=== PATIENT | female | born 1950 | race Caucasian/White ===

== ENCOUNTER → 2018-11-24 09:42 | Outpatient (CLI) | payer MEDICARE, OTHER, SELFPAY ==
--- NOTE | 2018-11-24 | DI.MG.S_ITS ---
BILATERAL DIGITAL SCREENING MAMMOGRAM 3D/2D WITH CAD: 11/24/2018 CLINICAL: Routine screening. Comparison is made to exams dated: 10/22/2016 mammogram, 11/24/2014 mammogram, and 11/18/2012 mammogram - [facility]. The tissue of both breasts is heterogeneously dense. This may lower the sensitivity of mammography. Current study was also evaluated with a Computer Aided Detection (CAD) system. No significant masses, calcifications, or other findings are seen in either breast. There has been no significant interval change. IMPRESSION: NEGATIVE There is no mammographic evidence of malignancy. A 1 year screening mammogram is recommended. This exam was interpreted at Station ID: [id number]. NOTE: For mammograms, a report in lay terms will be sent to the patient. Approximately 15% of breast malignancies will not be visualized mammographically. In the management of a palpable breast mass, a negative mammogram must not discourage biopsy of a clinically suspicious lesion. Electronically Signed By: Ministerio velasquez/nile:11/25/2018 10:25:19 letter sent: Normal Exam ACR BI-RADS Category 1: Negative 3341F
== END ==
PROVIDERS: Visit Provider Internal Medicine
DX: Z12.31 Encounter for screening mammogram for malignant neoplasm of breast (principal)
CPT/HCPCS: 77063; 77067

== ENCOUNTER 2019-03-25 07:13 | Day surgery (SDC) | payer MEDICARE, OTHER, SELFPAY ==
[2019-03-25] VITALS (7 sets, daily range): BP systolic 91–108; BP diastolic 51–71; PULSE 57–75; RESP 10–16; TEMP 36.1–36.4; O2SAT 98–100; BMI 19.0
[2019-03-25] MEDS: SODIUM CHLORIDE 0.9% 1,000 ML 42 ML IV (07:28)
--- NOTE | 2019-03-25 08:32 | PM.HP.1 ---
History of Present Illness Date Patient Seen: 03/25/19 Time Patient Seen: 08:33 Chief complaint: [id number] Narrative: SCreening. Last colon 10 y Patient History Medical History (Updated 03/25/19 @ 08:33 by Joselo Garcia MD) Hypothyroid (Acute) Surgical History (Updated 12/24/17 @ 05:49 by Conversion Provider) Status post colonoscopy Family History (Updated 07/22/16 @ 00:00 by Conversion Provider) Grandfather Stroke Grandfather Prostate cancer Grandmother Cancer Social History household members: spouse Family & Social History Family History (Updated 07/22/16 @ 00:00 by Conversion Provider) Grandfather Stroke Grandfather Prostate cancer Grandmother Cancer Social History: household members spouse Meds Allergies Allergy/AdvReac Type Severity Reaction Status Date / Time Sulfa (Sulfonamide Allergy Unknown Verified 03/25/19 07:28 Antibiotics) Exam Vital Signs (past 8 hours): - 03/25/19 07:34 Temperature 97.6 F Pulse Rate 65 Respiratory Rate 16 Blood Pressure 108/68 Pulse Oximetry 100 Oxygen Delivery Method Room Air Narrative Exam Narrative: Oropharynx free of lesions Chest clear to auscultation percussion Cardiac exam reveals no S3 or murmur Assessment & Plan Assessment & Plan narrative: Need for screening colonoscopy. Risks, benefits, alternatives have been explained.
--- NOTE | 2019-03-25 08:34 | PM.OP.ENDO ---
Operative Date/Time/Diagnoses Date of procedure: 03/25/19 Time of procedure: 08:34 Pre-op diagnosis: See indication and findings Procedure & Clinicians Study performed: Colonoscopy Same procedure as scheduled: Yes Indications: Screening Surgeon: Joselo Garcia Procedure Notes Procedure in detail: After informed consent was obtained the patient was placed in left lateral decubitus position. The video colonoscope was introduced the rectum slowly advanced to the cecum. On slow withdrawal mucosa was carefully examined. Preparation was good. The scope was removed. The patient tolerated the procedure well. Blood loss none Complications none Sedation Total sedation time 26 minutes Versed 6 mg, fentanyl 100 mg IV titration Findings 1. Normal colonoscopy to cecum. Colon was quite tortuous however Patient should have follow-up colonoscopy in 10 years.
[2019-03-25] MEDS: fentaNYL 250 MCG/5 ML INJ IV (08:44)
[2019-03-25] MEDS: MIDAZOLAM 5 MG/5 ML VIAL IV (08:45)
== END 2019-03-25 09:55 | disposition home or self-care (01) ==
LOC: ENDO 07:15
PROVIDERS: PCP Internal Medicine; Visit Provider Internal Medicine Gastroenterology
PROC: 0DJD8ZZ Inspection of Lower Intestinal Tract, Via Natural or Artificial Opening Endoscopic (ICD-10-PCS; CPT 45378; principal; 2019-03-25 08:30)
DX: Z12.11 Encounter for screening for malignant neoplasm of colon (principal); E03.9 Hypothyroidism, unspecified
CPT/HCPCS: G0121; J2250; J3010

== ENCOUNTER → 2020-05-19 10:42 | Outpatient (CLI) | payer MEDICARE, OTHER, SELFPAY ==
--- NOTE | 2020-05-19 | DI.MG.S_ITS ---
BILATERAL DIGITAL SCREENING MAMMOGRAM 3D/2D WITH CAD: 05/19/2020 CLINICAL: Routine screening. Comparison is made to exams dated: 11/24/2018 mammogram - [facility], 10/22/2016 mammogram, and 11/24/2014 mammogram - [facility]. The tissue of both breasts is heterogeneously dense. This may lower the sensitivity of mammography. Current study was also evaluated with a Computer Aided Detection (CAD) system. No significant masses, calcifications, or other findings are seen in either breast. There has been no significant interval change. IMPRESSION: NEGATIVE There is no mammographic evidence of malignancy. A 1 year screening mammogram is recommended. This exam was interpreted at Station ID: [id number]. NOTE: For mammograms, a report in lay terms will be sent to the patient. Approximately 15% of breast malignancies will not be visualized mammographically. In the management of a palpable breast mass, a negative mammogram must not discourage biopsy of a clinically suspicious lesion. Electronically Signed By: Gilles mayo/nile:05/19/2020 11:00:12 letter sent: Normal Exam ACR BI-RADS Category 1: Negative 3341F
== END ==
PROVIDERS: PCP Internal Medicine; Referring Provider Internal Medicine; Visit Provider Internal Medicine
DX: Z12.31 Encounter for screening mammogram for malignant neoplasm of breast (principal)
CPT/HCPCS: 77063; 77067

== ENCOUNTER → 2020-09-02 10:37 | Outpatient (CLI) | payer MEDICARE, OTHER, SELFPAY ==
[2020-09-02] MEDS: COVID-19 VACC(MODERNA-1)/PF 100 MCG/0.5 ML VIAL IM (10:46)
== END ==
PROVIDERS: PCP Internal Medicine; Visit Provider Internal Medicine
DX: Z23 Encounter for immunization (principal)
CPT/HCPCS: 0011A; 91301

== ENCOUNTER → 2020-09-29 13:23 | Outpatient (CLI) | payer MEDICARE, OTHER, SELFPAY ==
[2020-09-29] MEDS: COVID-19 VACC #2, MRNA(MOD) 100 MCG/0.5 ML VIAL IM (13:30)
== END ==
PROVIDERS: PCP Internal Medicine; Visit Provider Internal Medicine
DX: Z23 Encounter for immunization (principal)
CPT/HCPCS: 0012A; 91301

== ENCOUNTER → 2021-10-12 15:21 | Outpatient (CLI) | payer MEDICARE, OTHER, SELFPAY ==
--- NOTE | 2021-10-12 | DI.MG.S_ITS ---
BILATERAL DIGITAL SCREENING MAMMOGRAM 3D/2D WITH CAD: 10/12/2021 CLINICAL: Routine screening. Comparison is made to exams dated: 05/19/2020 mammogram, 11/24/2018 mammogram - [facility], and 10/22/2016 mammogram - [facility]. The tissue of both breasts is heterogeneously dense. This may lower the sensitivity of mammography. Current study was also evaluated with a Computer Aided Detection (CAD) system. No significant masses, calcifications, or other findings are seen in either breast. There has been no significant interval change. IMPRESSION: NEGATIVE There is no mammographic evidence of malignancy. A 1 year screening mammogram is recommended. This exam was interpreted at Station ID: [id number]. NOTE: For mammograms, a report in lay terms will be sent to the patient. Approximately 15% of breast malignancies will not be visualized mammographically. In the management of a palpable breast mass, a negative mammogram must not discourage biopsy of a clinically suspicious lesion. Electronically Signed By: Chintan Herrera M.D., jr/nile:10/13/2021 09:37:12 letter sent: Normal Exam ACR BI-RADS Category 1: Negative 3341F
== END ==
PROVIDERS: PCP Registered Nurse; Referring Provider Registered Nurse; Visit Provider Internal Medicine
DX: Z12.31 Encounter for screening mammogram for malignant neoplasm of breast (principal)
CPT/HCPCS: 77063; 77067

== ENCOUNTER → 2021-12-21 10:30 | Outpatient (CLI) | payer MEDICARE, OTHER, SELFPAY | PROVIDERS: PCP Registered Nurse; Referring Provider Registered Nurse; Visit Provider Registered Nurse | DX: M81.0 Age-related osteoporosis without current pathological fracture (principal); Z78.0 Asymptomatic menopausal state | CPT/HCPCS: 77080 ==

== ENCOUNTER → 2022-10-25 07:28 | Outpatient (CLI) | payer MEDICARE, OTHER, SELFPAY ==
--- NOTE | 2022-10-25 | DI.MG.S_ITS ---
BILATERAL DIGITAL SCREENING MAMMOGRAM 3D/2D WITH CAD: 10/25/2022 CLINICAL: Routine screening. Comparison is made to exams dated: 10/12/2021 mammogram, 05/19/2020 mammogram, and 11/24/2018 mammogram - [facility]. Both breasts are heterogeneously dense, which may obscure small masses (category c / 51-75% glandular tissue). Current study was also evaluated with a Computer Aided Detection (CAD) system. There is a possible developing asymmetry in the right breast at 12 o'clock anterior depth. This is more prominent. There is architectural distortion associated with the asymmetry. No other significant masses, calcifications, or other findings are seen in either breast. IMPRESSION: INCOMPLETE: NEEDS ADDITIONAL IMAGING EVALUATION The possible developing asymmetry in the right breast is indeterminate. Additional views with possible ultrasound are recommended. Based on the Tyrer Cuzick model (a risk assessment model) the patient's lifetime risk is 8.2% and her 10 year risk is 5.3%. According to the ACR, ACS, and NCCN guidelines, an annual breast MRI exam along with mammogram is recommended if the patient's lifetime risk is 20% or greater. This exam was interpreted at Station ID: [id number]. NOTE: For mammograms, a report in lay terms will be sent to the patient. Approximately 15% of breast malignancies will not be visualized mammographically. In the management of a palpable breast mass, a negative mammogram must not discourage biopsy of a clinically suspicious lesion. Electronically Signed By: Chintan Herrera M.D., jr/nile:10/25/2022 14:47:20 letter sent: Additional Imaging Needed ACR BI-RADS Category 0: Incomplete 3340F
== END ==
PROVIDERS: PCP Registered Nurse; Referring Provider Registered Nurse; Visit Provider Registered Nurse
DX: Z12.31 Encounter for screening mammogram for malignant neoplasm of breast (principal)
CPT/HCPCS: 77063; 77067

== ENCOUNTER → 2022-11-02 11:57 | Outpatient (CLI) | payer MEDICARE, OTHER, SELFPAY ==
--- NOTE | 2022-11-02 | DI.US.S_ITS ---
ULTRASOUND OF RIGHT BREAST: 11/02/2022 CLINICAL: Add views right breast. Comparison is made to exams dated: 11/02/2022 mammogram, 10/25/2022 mammogram, 10/12/2021 mammogram, 05/19/2020 mammogram, 11/24/2018 mammogram - [facility], and 10/22/2016 mammogram - [facility]. Color flow and real-time ultrasound of the right breast were performed on the areas of interest. Ag scale images of the real-time examination were reviewed. There is a stable benign mass in the right breast at 1 o'clock posterior depth. IMPRESSION: PROBABLY BENIGN There is no sonographic abnormality seen in the right breast to correspond with the possible asymmetry and possible architectural distortion at 12 o'clock. A follow-up mammogram and a possible ultrasound in 6 months is recommended to demonstrate stability. This exam was interpreted at Station ID: [id number]. Electronically Signed By: Fe ray/:11/05/2022 11:49:32 Entry: - 11/05/2022 11:49:32 letter sent: Followup Recommended Ultrasound BI-RADS: 3 Probably benign
--- NOTE | 2022-11-02 | DI.MG.S_ITS ---
UNILATERAL RIGHT DIGITAL DIAGNOSTIC MAMMOGRAM 3D/2D WITH ADDITIONAL VIEWS: 11/02/2022 CLINICAL: Patient returns today to evaluate an asymmetry in the right breast. Comparison is made to exams dated: 10/25/2022 mammogram, 10/12/2021 mammogram, 05/19/2020 mammogram, and 11/24/2018 mammogram - [facility]. The right breast is heterogeneously dense, which may obscure small masses (category c / 51-75% glandular tissue). There is a focal asymmetry in the right breast at 12 o'clock middle depth. This is seen in additional views. There is possible architectural distortion associated with the focal asymmetry. No other significant masses or calcifications are seen in the breast. IMPRESSION: INCOMPLETE: NEEDS ADDITIONAL IMAGING EVALUATION The focal asymmetry in the right breast is indeterminate. A targeted ultrasound of the right breast is recommended and will be performed immediately following this exam. Based on the Tyrer Cuzick model (a risk assessment model) the patient's lifetime risk is 8.2% and her 10 year risk is 5.3%. According to the ACR, ACS, and NCCN guidelines, an annual breast MRI exam along with mammogram is recommended if the patient's lifetime risk is 20% or greater. This exam was interpreted at Station ID: [id number]. NOTE: For mammograms, a report in lay terms will be sent to the patient. Approximately 15% of breast malignancies will not be visualized mammographically. In the management of a palpable breast mass, a negative mammogram must not discourage biopsy of a clinically suspicious lesion. Electronically Signed By: Fe ray/:11/05/2022 11:47:13 Entry: - 11/05/2022 11:47:13 ACR BI-RADS Category 0: Incomplete 3340F
== END ==
PROVIDERS: PCP Registered Nurse; Referring Provider Registered Nurse; Visit Provider Registered Nurse
DX: D48.61 Neoplasm of uncertain behavior of right breast (principal); R92.8 Other abnormal and inconclusive findings on diagnostic imaging of breast
CPT/HCPCS: 76642; 77065; G0279

== ENCOUNTER 2023-04-25 14:00 | Outpatient (RCR) | payer MEDICARE, OTHER, SELFPAY ==
--- NOTE | 2023-01-03 19:19 | PT.OIE ---
Current Diagnoses Mixed incontinence (01/03/23) Past Medical History (Last Updated 03/25/19 @ 08:33 by Joselo Garcia MD) Hypothyroid Past Surgical History Status post colonoscopy Visit Care Team Role Provider Type ANA Rogel Attending Provider Non-Staff Family Provider Primary Care Provider Referring Provider Specialty: Naturopathy Address: [address] [place] [address], [id number] Email: Physical Therapy Initial Evaluation PT-OP-A Visit Information Start: 12/29/22 18:05 Freq: Status: Active Protocol: Document 01/03/23 08:01 LRN (Rec: 01/03/23 08:52 LRN [id number]) Out-Patient Physical Therapy Visit Information Visit Information Visit Type Initial Evaluation Visit Start Time 08:04 Visit Stop Time 08:48 Total Visit Minutes 44 Visit Number 1 Evaluation Information Evaluation Date 01/03/23 Precautions Precautions PMH: hypothryroid, osteopenia PT-OP-B Current Condition Start: 12/29/22 18:05 Freq: Status: Active Protocol: Document 01/03/23 08:01 LRN (Rec: 01/03/23 08:52 LRN [id number]) Current Condition History of Current Condition Onset Date 1 yr ago Current Complaints Small amount of leakage randomly. History of Current Condition Pt gets leakage not always when the bladder is full. Not a sense of fullness, it just leaks ~1-2x/month. Involuntary leakage, not related to activity or urge. States she travels alot, but works with diet to keep bowel movements regular. States she has been doing Kegels ex's for decades. PMH: 2-3 Bartholin cysts that had to be drained 4-5 yrs ago. UTI 3 weeks ago that was treated with prescription medication. She has UTI's ~2x/yr. Prior Treatments and Tests None Treatment Goals Patient/Caregiver Goals Pt goals: * to determine if there is a better way to perform Kegels and best HEP using Kegels, * educated in behavior changes she needs to make and * advice on if she should use Estradiol (used 5 yrs ago) because she has been told she has vaginal atrophy. Personal Factors Other Personal Factors That May Effect 2 vaginal births w/o Therapy/Recovery complications but did have stitches and episiotomy, UTI's ~2x/yr, Osteopenia. PT-OP-C Subjective Start: 12/29/22 18:05 Freq: Status: Active Protocol: Document 01/03/23 08:01 LRN (Rec: 01/03/23 08:52 LRN [id number]) Patient Questionnaires Pelvic Pain and Urgency/Frequency Patient Symptom Scale Pelvic Pain Score 7 PT-OP-I Pelvic Floor Start: 12/29/22 18:05 Freq: Status: Active Protocol: Document 01/03/23 08:01 LRN (Rec: 01/03/23 08:52 LRN [id number]) Pelvic Floor Assessment Urine Urinary Symptoms Prolapse Leakage Size Small Leaks Per Day 3x/month Voiding Frequency 5-6 Nocturia 0 Bowel Bowel Symptoms Constipation Other Bowel Symptoms Occasional constipation if she doesn't work on it. Hypothyroidism. Uses psyllium most days. Bowel Movement Frequency Daily, 1-2xday [place] Stool Chart Comments 2-4 Prolapse Urethrocele Grade 2 PT-OP-J Posture/Palpation/Skin Start: 12/29/22 18:05 Freq: Status: Active Protocol: Document 01/03/23 08:01 LRN (Rec: 01/03/23 08:52 LRN [id number]) Posture Evaluation Position Standing Head/C-Spine Posture Forward Head T-Spine Posture Increased Kyphosis L-Spine Posture Increased Lordosis Shoulder Posture (R) Elevated Scapula Posture (L) Rotated Down,(L) Depressed Arm Posture (L) Internally Rotated,(R) Internally Rotated Pelvis Posture (L) PSIS Posterior,(L) PSIS Inferior,(R) ASIS Inferior Hip Posture (R) Externally Rotated Comments Posture Comments L shoulder & breast low. L innominate in posterior rotation and posterior. PT-OP-K Range of Motion Start: 12/29/22 18:05 Freq: Status: Active Protocol: Document 01/03/23 08:01 LRN (Rec: 01/03/23 08:52 LRN [id number]) Lumbar Spine Range of Motion Lumbar Spine Active Degrees Testing Position Standing Flexion 110 Extension 15 Rotation Left 45 Rotation Right 40 Lateral Flexion Left 20 Lateral Flexion Right 15 Comments Holds Ext mobility due to spondylolisthesis. Loss of core control with hip Ext MMT. Hip Goniometric Range of Motion Hip Right Passive Testing Position Supine Internal Rotation 45 External Rotation 45 Left Passive Internal Rotation 40 External Rotation 45 PT-OP-M Strength Start: 12/29/22 18:05 Freq: Status: Active Protocol: Document 01/03/23 08:01 LRN (Rec: 01/03/23 08:52 LRN [id number]) Trunk Strength Trunk Manual Muscle Testing Flexion 5 Normal Extension 5 Normal Rotation Left 5 Normal Rotation Right 3 Fair Core Stabilization Lacks core stability with MMT of R hip ext. Hip Strength Hip Manual Muscle Testing Right Comments Strength is 5/5 in all ms groups. Left Comments Strength is 5/5 in all ms groups. PT-OP-Q Treatments Start: 12/29/22 18:05 Freq: Status: Active Protocol: Document 01/03/23 08:01 LRN (Rec: 01/03/23 08:52 LRN [id number]) Self-Care/Home Management Treatment Education Other Education Discussed results of evaluation, goals, and plan of care (POC). Pt agreeable to goals and POC. Pt educated in use of Bladder Diary and I/S in tracking for 1 week. Discussed use of 2 different diaries for tracking of bladder. Referred pt to referring physician for possible use of estrogen creme to improve PF health due to dryness of tissues and reported vaginal atrophy. PT-OP-T Assessment and Plan Start: 12/29/22 18:05 Freq: Status: Active Protocol: Document 01/03/23 08:01 LRN (Rec: 01/03/23 08:52 LRN [id number]) Physical Therapy Assessment Rehab Potential Rehabilitation Potential Good Evaluation Complexity Number of Personal Factors/Comorbidities 1-2 Number of Body Systems Impaired 4 or More Clinical Presentation at Evaluation Stable Impairments Impairments Posture,ROM,Soft Tissue Mobility,Strength Other Impairments Urinary leakage. Occasional constipation, Goals Four Impairment Poor body mechanics with transfer and possibly ADLs. Short Term Goal (STG) Pt will be able to transfers sup<>sit with best method to decrease core pressure. STG Duration 02/15/23 Vp Respiratory Goal (LTG) Pt will be able to make behaviour changes to coordinate PF contraction strengthening with transfers and ADLs. LTG Duration 04/05/23 Three Impairment Decreased Hip mobility Impairment PROM R hip IR is 45 deg's, ER is 45 deg's. PROM L hip IR is 40 deg's, ER is 45 deg's. Short Term Goal (STG) Pt will be educated in self care HEP of hip PROM ex's. STG Duration 02/15/23 Vp Respiratory Goal (LTG) Pt will demonstrate improved hip mobility for IR of L hip 5 deg's, and marko hip ER improved 5-10 deg's. LTG Duration 04/05/23 Two Impairment Increased PF tone. Short Term Goal (STG) Pt will be educated in proper management of her core pressure with ADLs and transfers. STG Duration 02/15/23 Vp Respiratory Goal (LTG) Pt will demonstrate per EMG biofeedback a decrease in PF tone. LTG Duration 04/05/23 One Impairment Pt lacks appropriate self care HEP Impairment Hip IR Short Term Goal (STG) Improve pt awareness of proper PF contraction for pt education of best way to perform a Kegel STG Duration 02/15/23 Vp Respiratory Goal (LTG) Pt will be able to manage symptoms of random urinary leakage with an independent HEP to include Hip ROM and strengthening as well as appropriate PF ex's. LTG Duration 04/05/23 Assessment Summary Assessment Pt is a 72 yo very fit female who presents in supine to have descent of her bladder but prolapse into the vaginal canal is not visible due to urethra descent. Descent of her bladder is probably due to poor core pressure management , occasional constipation, and weakening of her anterior PF muscles (PFMs). She has a visible urethrocele. She has a pelvic obliquity of L innominate posteriorly rotated and posteriorly shifted. She has tightness of her PFMs and hip IR's, but weakness of her anterior PFMs. On visual inspection of her perineum, an anterior PF contraction is not visible. The pt expects to have many interruptions this summer; therefore her rehabilitation is expected to take much longer to complete 8 visits, up to 3 months of time or longer. The pt will benefit from skilled physical therapy to improve hip mobility, improve awareness to improve PF strength, normalize PF ms tone, improve bowel management, and improve symmetry of hip mobility and strength, in order to achieve the above stated goals. Physical Therapy Plan Frequency and Duration Frequency of Treatment 1x/Week Plan of Care Start Date 01/03/23 Plan of Care End Date 04/05/23 Therapeutic Interventions Therapeutic Interventions Home Exercise Program,Joint Mobilizations,Manual Therapy, Neuromuscular Re-education, Patient/Caregiver Education, Self-Care/Home Management,Soft Tissue Mobilization, Therapeutic Activities, Therapeutic Exercises Modalities Cold Pack/Ice Massage Next Visit Focus/Plan Next Note Type Treatment Note Next Visit Plan PF weakness and constipation rehabilitation. Reassess PF strength/tone per palpation and biofeedback. Review bladder diary and make recommendations to fluid/food intake, discuss & educate pt in proper squatting and lifting, sit to stand, and moving in bed using proper breathwork. Biofeedback assessment of PF and training as needed. Teaching urge deference technique. Education in core/canister pressure management and strategies to decrease PF pressures with coughing, and discuss self care methods for having BM's without valsa maneuver. Review proper breathing with transfer for proper core pressure management. Education in vulvar/genital care and body mechanics with proper breathwork and PF contraction. Educate & train anterior Kegel contraction without use of substitute muscles. Exer: Fig 4 stretches, STM of abdomen (and urachus), bladder. Assess deep breathing and start LE roll in/out ex if appropriate.
--- NOTE | 2023-02-28 16:50 | PT.OTN ---
Current Diagnoses Mixed incontinence (02/28/23) Physical Therapy Treatment Note PT-OP-A Visit Information Start: 12/29/22 18:05 Freq: Status: Active Protocol: Document 02/28/23 11:24 LRN (Rec: 02/28/23 12:19 LRN [id number]) Out-Patient Physical Therapy Visit Information Visit Information Visit Type Treatment Note Visit Start Time 11:24 Visit Stop Time 12:05 Total Visit Minutes 42 Visit Number 2 Evaluation Information Evaluation Date 01/03/23 Precautions Precautions PMH: hypothryroid, osteopenia PT-OP-B Current Condition Start: 12/29/22 18:05 Freq: Status: Active Protocol: Document 01/03/23 08:01 LRN (Rec: 01/03/23 08:52 LRN [id number]) Current Condition History of Current Condition Onset Date 1 yr ago Current Complaints Small amount of leakage randomly. History of Current Condition Pt gets leakage not always when the bladder is full. Not a sense of fullness, it just leaks ~1-2x/month. Involuntary leakage, not related to activity or urge. States she travels alot, but works with diet to keep bowel movements regular. States she has been doing Kegels ex's for decades. PMH: 2-3 Bartholin cysts that had to be drained 4-5 yrs ago. UTI 3 weeks ago that was treated with prescription medication. She has UTI's ~2x/yr. Prior Treatments and Tests None Treatment Goals Patient/Caregiver Goals Pt goals: * to determine if there is a better way to perform Kegels and best HEP using Kegels, * educated in behavior changes she needs to make and * advice on if she should use Estradiol (used 5 yrs ago) because she has been told she has vaginal atrophy. Personal Factors Other Personal Factors That May Effect 2 vaginal births w/o Therapy/Recovery complications but did have stitches and episiotomy, UTI's ~2x/yr, Osteopenia. PT-OP-C Subjective Start: 12/29/22 18:05 Freq: Status: Active Protocol: Document 02/28/23 11:24 LRN (Rec: 02/28/23 12:19 LRN [id number]) OP-PT Subjective Patient Comments Patient Comments Small leakage after aerobic walk and had coffee prior. Involuntary loss of urine. Had no leakage the week she didn't have coffee. First time leakage happened with pressure (leaning over to tie shoes). PT-OP-I Pelvic Floor Start: 12/29/22 18:05 Freq: Status: Active Protocol: Document 02/28/23 11:24 LRN (Rec: 02/28/23 12:19 [facility] [id number]) Pelvic Floor Assessment Prolapse Urethrocele Grade 2 SEMG (uV) Baseline 1.1 Quick Contraction 25 10 Second Contraction 46 Recruitment Pattern Good Contraction Ability Voluntary Contraction Moderate Voluntary Relaxation Weak Manual Muscle Testing Left 5 Manual Muscle Testing Right 5 Manual Muscle Testing Anterior 5 Manual Muscle Testing Posterior 5 Muscle Endurance (Seconds) 6 Number of Quick Contractions In 10 10 Seconds Comments Pelvic Floor Comments Assessment per Pathway MR-20. Quick Flicks max (5x): in uV' s: 28, 36, 31, 30,32 (avg is 25 uV's). Long Holds (2x): Work (in uV's ): 20-37, 21-32 (avg is 27.5), Rest (in uV's): 2.8, 1.1 (avg is 1.9) Tissue normal and healthy. PT-OP-J Posture/Palpation/Skin Start: 12/29/22 18:05 Freq: Status: Active Protocol: Document 01/03/23 08:01 LRN (Rec: 01/03/23 08:52 [facility] [id number]) Posture Evaluation Position Standing Head/C-Spine Posture Forward Head T-Spine Posture Increased Kyphosis L-Spine Posture Increased Lordosis Shoulder Posture (R) Elevated Scapula Posture (L) Rotated Down,(L) Depressed Arm Posture (L) Internally Rotated,(R) Internally Rotated Pelvis Posture (L) PSIS Posterior,(L) PSIS Inferior,(R) ASIS Inferior Hip Posture (R) Externally Rotated Comments Posture Comments L shoulder & breast low. L innominate in posterior rotation and posterior. PT-OP-K Range of Motion Start: 12/29/22 18:05 Freq: Status: Active Protocol: Document 01/03/23 08:01 LRN (Rec: 01/03/23 08:52 [facility] [id number]) Lumbar Spine Range of Motion Lumbar Spine Active Degrees Testing Position Standing Flexion 110 Extension 15 Rotation Left 45 Rotation Right 40 Lateral Flexion Left 20 Lateral Flexion Right 15 Comments Holds Ext mobility due to spondylolisthesis. Loss of core control with hip Ext MMT. Hip Goniometric Range of Motion Hip Right Passive Testing Position Supine Internal Rotation 45 External Rotation 45 Left Passive Internal Rotation 40 External Rotation 45 PT-OP-M Strength Start: 12/29/22 18:05 Freq: Status: Active Protocol: Document 01/03/23 08:01 LRN (Rec: 01/03/23 08:52 LRN [id number]) Trunk Strength Trunk Manual Muscle Testing Flexion 5 Normal Extension 5 Normal Rotation Left 5 Normal Rotation Right 3 Fair Core Stabilization Lacks core stability with MMT of R hip ext. Hip Strength Hip Manual Muscle Testing Right Comments Strength is 5/5 in all ms groups. Left Comments Strength is 5/5 in all ms groups. PT-OP-Q Treatments Start: 12/29/22 18:05 Freq: Status: Active Protocol: Document 02/28/23 11:24 LRN (Rec: 02/28/23 12:19 LRN [id number]) Therapeutic Exercises Supine Exercises Isolated PF contraction Supine Exercise Name Awareness training of isolated PF contractions Reps/Minutes 15' Comments Extra time for set up with Vemg. Long Holds Supine Exercise Name Long Holds without and w/Vemg Comments See PF contraction ability Quick Flicks Supine Exercise Name Quick flicks without and w/ Vemg Comments See PF contraction ability Other Exercises Sup<>Sit<>Stand/PF/breathing Other Exercise Name Transfer training w/ coordination of breathing & PF contraction. Reps/Minutes 8' Comments Extra time for education/ training. Self-Care/Home Management Treatment Education Other Education Reviewed bladder diary and discuss fluid management. Reviewed proper breathing with transfer for proper core pressure management. Activities Self-Care/Home Management Activities I/S pt to continue practicing proper transfers with proper core pressure management. I/S pt to equal WB on legs with standing. PT-OP-T Assessment and Plan Start: 12/29/22 18:05 Freq: Status: Active Protocol: Document 02/28/23 11:24 LRN (Rec: 02/28/23 12:19 LRN [id number]) Physical Therapy Assessment Goals Four Impairment Poor body mechanics with transfer and possibly ADLs. Short Term Goal (STG) Pt will be able to transfers sup<>sit with best method to decrease core pressure. 02/28/23: Pt educated and reviewed proper sup<>sit<> stand transfers for proper core pressure management. STG Duration 02/15/23 (02/28/23: MET GOAL) Curtain Worker Goal (LTG) Pt will be able to make behaviour changes to coordinate PF contraction strengthening with transfers and ADLs. LTG Duration 04/05/23 Three Impairment Decreased Hip mobility Impairment PROM R hip IR is 45 deg's, ER is 45 deg's. PROM L hip IR is 40 deg's, ER is 45 deg's. Short Term Goal (STG) Pt will be educated in self care HEP of hip PROM ex's. STG Duration 02/15/23 Curtain Worker Goal (LTG) Pt will demonstrate improved hip mobility for IR of L hip 5 deg's, and marko hip ER improved 5-10 deg's. LTG Duration 04/05/23 Two Impairment Increased PF tone. Short Term Goal (STG) Pt will be educated in proper management of her core pressure with ADLs and transfers. 02/28/23: Educated pt in proper managment of core pressure with transfers. STG Duration 02/15/23 progressed 02/28/23 ( need ed w/ADLS) Jail Goal (LTG) Pt will demonstrate per EMG biofeedback a decrease in PF tone. LTG Duration 04/05/23 One Impairment Pt lacks appropriate self care HEP Impairment Hip IR is 45 deg's R, 40 deg's L; Hip ER is 45 deg's bilaterally . Short Term Goal (STG) Improve pt awareness of proper PF contraction for pt education of best way to perform a Kegel STG Duration 02/15/23 Jail Goal (LTG) Pt will be able to manage symptoms of random urinary leakage with an independent HEP to include Hip ROM and strengthening as well as appropriate PF ex's. LTG Duration 04/05/23 Assessment Summary Assessment Pt returns after 2 months. She is a fit female who diagnosed with descent of her bladder but prolapse into the vaginal canal is not visible but urethra descent is visible . She is keeping constipation under control. Per bladder diary, urinary leakage appears to be only in times of stress or after drinking coffee. Pt PF strength is strong but endurance is only 6 secs. Not able to perform PF assessment with Vemg due to computer not working, but able to use Pathway MR-20 for general values of relaxation and contractions. She has good resting tone and strength of contractions, but her endurance is decreased at 6 sec holds before drop in strength. Pt has been doing PF contrations of 3 sec holds 50x; therefore strength may have improved quite a bit before start of therapy. Pressure management is needed and endurance strengthening. Pt has good understanding of sympathetic vs parasympathic system effects and should be better able to control sympathetic system in times of stress than usual. Physical Therapy Plan Frequency and Duration Frequency of Treatment 1x/Week Plan of Care Start Date 01/03/23 Plan of Care End Date 04/05/23 Next Visit Focus/Plan Next Note Type Treatment Note Next Visit Plan PF long hold weakness, avoid over tightening PF and monitor for constipation. Assess posture. EMG biofeedback assessment. Teaching urge deference technique. Discuss & educate proper breathwork for proper core pressure management with proper squatting and lifting, sit to stand, and moving in bed. Review proper breathing with transfer Biofeedback assessment of PF and endurance training. Education in core/canister pressure management and strategies to decrease PF pressures with coughing, and discuss self care methods for having BM's without valsa maneuver. Education in vulvar/genital care. Educate & train anterior Kegel contraction without use of substitute muscles. Exer: Fig 4 stretches, L hip IR stretch until symmetry is reached. STM of abdomen (and urachus), bladder. Assess deep breathing.
--- NOTE | 2023-03-07 12:13 | PT.OTN ---
Current Diagnoses Mixed incontinence (03/07/23) Physical Therapy Treatment Note PT-OP-A Visit Information Start: 12/29/22 18:05 Freq: Status: Active Protocol: Document 03/07/23 11:23 LRN (Rec: 03/07/23 12:12 LRN [id number]) Out-Patient Physical Therapy Visit Information Visit Information Visit Type Treatment Note Visit Start Time 11:23 Visit Stop Time 12:02 Total Visit Minutes 39 Visit Number 3 Evaluation Information Evaluation Date 01/03/23 Precautions Precautions PMH: hypothryroid, osteopenia PT-OP-B Current Condition Start: 12/29/22 18:05 Freq: Status: Active Protocol: Document 01/03/23 08:01 LRN (Rec: 01/03/23 08:52 LRN [id number]) Current Condition History of Current Condition Onset Date 1 yr ago Current Complaints Small amount of leakage randomly. History of Current Condition Pt gets leakage not always when the bladder is full. Not a sense of fullness, it just leaks ~1-2x/month. Involuntary leakage, not related to activity or urge. States she travels alot, but works with diet to keep bowel movements regular. States she has been doing Kegels ex's for decades. PMH: 2-3 Bartholin cysts that had to be drained 4-5 yrs ago. UTI 3 weeks ago that was treated with prescription medication. She has UTI's ~2x/yr. Prior Treatments and Tests None Treatment Goals Patient/Caregiver Goals Pt goals: * to determine if there is a better way to perform Kegels and best HEP using Kegels, * educated in behavior changes she needs to make and * advice on if she should use Estradiol (used 5 yrs ago) because she has been told she has vaginal atrophy. Personal Factors Other Personal Factors That May Effect 2 vaginal births w/o Therapy/Recovery complications but did have stitches and episiotomy, UTI's ~2x/yr, Osteopenia. PT-OP-C Subjective Start: 12/29/22 18:05 Freq: Status: Active Protocol: Document 03/07/23 11:23 LRN (Rec: 03/07/23 12:12 LRN [id number]) OP-PT Subjective Patient Comments Patient Comments Pt doesn't have her vaginal electrode today. Hasn't had any leakage. Doing ex's 2x/ day and using the 5 quick contractions and relaxing bladder. Using urge deference techinque. PT-OP-I Pelvic Floor Start: 12/29/22 18:05 Freq: Status: Active Protocol: Document 02/28/23 11:24 LRN (Rec: 02/28/23 12:19 LR [id number]) Pelvic Floor Assessment Prolapse Urethrocele Grade 2 SEMG (uV) Baseline 1.1 Quick Contraction 25 10 Second Contraction 46 Recruitment Pattern Good Contraction Ability Voluntary Contraction Moderate Voluntary Relaxation Weak Manual Muscle Testing Left 5 Manual Muscle Testing Right 5 Manual Muscle Testing Anterior 5 Manual Muscle Testing Posterior 5 Muscle Endurance (Seconds) 6 Number of Quick Contractions In 10 10 Seconds Comments Pelvic Floor Comments Assessment per Pathway MR-20. Quick Flicks max (5x): in uV' s: 28, 36, 31, 30,32 (avg is 25 uV's). Long Holds (2x): Work (in uV's ): 20-37, 21-32 (avg is 27.5), Rest (in uV's): 2.8, 1.1 (avg is 1.9) Tissue normal and healthy. PT-OP-J Posture/Palpation/Skin Start: 12/29/22 18:05 Freq: Status: Active Protocol: Document 01/03/23 08:01 LRN (Rec: 01/03/23 08:52 [facility] [id number]) Posture Evaluation Position Standing Head/C-Spine Posture Forward Head T-Spine Posture Increased Kyphosis L-Spine Posture Increased Lordosis Shoulder Posture (R) Elevated Scapula Posture (L) Rotated Down,(L) Depressed Arm Posture (L) Internally Rotated,(R) Internally Rotated Pelvis Posture (L) PSIS Posterior,(L) PSIS Inferior,(R) ASIS Inferior Hip Posture (R) Externally Rotated Comments Posture Comments L shoulder & breast low. L innominate in posterior rotation and posterior. PT-OP-K Range of Motion Start: 12/29/22 18:05 Freq: Status: Active Protocol: Document 01/03/23 08:01 LRN (Rec: 01/03/23 08:52 [facility] [id number]) Lumbar Spine Range of Motion Lumbar Spine Active Degrees Testing Position Standing Flexion 110 Extension 15 Rotation Left 45 Rotation Right 40 Lateral Flexion Left 20 Lateral Flexion Right 15 Comments Holds Ext mobility due to spondylolisthesis. Loss of core control with hip Ext MMT. Hip Goniometric Range of Motion Hip Right Passive Testing Position Supine Internal Rotation 45 External Rotation 45 Left Passive Internal Rotation 40 External Rotation 45 PT-OP-M Strength Start: 12/29/22 18:05 Freq: Status: Active Protocol: Document 01/03/23 08:01 LRN (Rec: 01/03/23 08:52 LRN [id number]) Trunk Strength Trunk Manual Muscle Testing Flexion 5 Normal Extension 5 Normal Rotation Left 5 Normal Rotation Right 3 Fair Core Stabilization Lacks core stability with MMT of R hip ext. Hip Strength Hip Manual Muscle Testing Right Comments Strength is 5/5 in all ms groups. Left Comments Strength is 5/5 in all ms groups. PT-OP-Q Treatments Start: 12/29/22 18:05 Freq: Status: Active Protocol: Document 03/07/23 11:23 LRN (Rec: 03/07/23 12:12 LRN [id number]) Therapeutic Exercises Supine Exercises LE roll in/outs/DB Supine Exercise Name LE roll in/outs & with DB Reps/Minutes 8' Also used as relaxation ex during transfer training. Comments Much cuing for slowness of breath and coordination of mvmt/breath. Deep Breathing Supine Exercise Name Deep Breathing training Reps/Minutes 4' Comments Pt able to slow to 6 sec contractions. Isolated PF contraction Supine Exercise Name Awareness training of isolated PF contractions Reps/Minutes 7' Comments Extra time for set up with Vemg. Other Exercises Squatting, lifting Other Exercise Name Squatting and lifting training with proper breathwork/PF contraction Reps/Minutes 2' Sup<>Sit<>Stand/PF/breathing Other Exercise Name Stand<>sit<>sup with breath/PF contraction. Side bilateral Reps/Minutes 5x each side. Breath work for rest x 20 secs in supine Comments Extra time for training Self-Care/Home Management Treatment Education Other Education 12' Discussion on Bladder retraining. Discussed & educate pt in proper breathwork for proper core pressure management with proper squatting and lifting, sit to stand, and moving in bed. Activities Self-Care/Home Management Activities Pt I/S to perform proper breathwork and PF contractions with transfers, & functional activities of squatting/ lifting, and continue PF contraction ex w/LE roll in/ outs for rest periods. PT-OP-T Assessment and Plan Start: 12/29/22 18:05 Freq: Status: Active Protocol: Document 03/07/23 11:23 LRN (Rec: 03/07/23 12:12 LRN [id number]) Physical Therapy Assessment Goals Four Impairment Poor body mechanics with transfer and possibly ADLs. Short Term Goal (STG) Pt will be able to transfers sup<>sit with best method to decrease core pressure. 02/28/23: Pt educated and reviewed proper sup<>sit<> stand transfers for proper core pressure management. STG Duration 02/15/23 (02/28/23: MET GOAL) Criminology Teacher Goal (LTG) Pt will be able to make behaviour changes to coordinate PF contraction strengthening with transfers and ADLs. LTG Duration 04/05/23 Three Impairment Decreased Hip mobility Impairment PROM R hip IR is 45 deg's, ER is 45 deg's. PROM L hip IR is 40 deg's, ER is 45 deg's. Short Term Goal (STG) Pt will be educated in self care HEP of hip PROM ex's. STG Duration 02/15/23 Criminology Teacher Goal (LTG) Pt will demonstrate improved hip mobility for IR of L hip 5 deg's, and marko hip ER improved 5-10 deg's. LTG Duration 04/05/23 Two Impairment Increased PF tone. Short Term Goal (STG) Pt will be educated in proper management of her core pressure with ADLs and transfers. 02/28/23: Educated pt in proper managment of core pressure with transfers and squatting/ lifting. STG Duration 02/15/23 progressed 02/28/23 ( need educ w/ADL handout) Skilled Nursing Goal (LTG) Pt will demonstrate per EMG biofeedback a decrease in PF tone. LTG Duration 04/05/23 One Impairment Pt lacks appropriate self care HEP Impairment Hip IR is 45 deg's R, 40 deg's L; Hip ER is 45 deg's bilaterally . Short Term Goal (STG) Improve pt awareness of proper PF contraction for pt education of best way to perform a Kegel 03/07/23: Pt educated in PF contraction in isolation of substitute muscles. STG Duration 02/15/23 progressed 03/07/23 Criminology Teacher Goal (LTG) Pt will be able to manage symptoms of random urinary leakage with an independent HEP to include Hip ROM and strengthening as well as appropriate PF ex's. LTG Duration 04/05/23 Assessment Summary Assessment Pt is a fit female diagnosed with descent of bladder but prolapse into the vaginal canal is not visible but urethra descent is visible. Deep breathing is fast, but pt appears to be able to slow for a 6 sec breath. Improvement is noted with no urinary leakage this past week using the urge deference techinque. Posture: ribcage is slightly foward of hips. Physical Therapy Plan Frequency and Duration Frequency of Treatment 1x/Week Plan of Care Start Date 01/03/23 Plan of Care End Date 04/05/23 Next Visit Focus/Plan Next Note Type Treatment Note Next Visit Plan PF long hold strengthening, avoid over tightening PF and monitor for constipation. Educate pt in improved posture of ribcage over hips. Biofeedback assessment of PF and endurance training. Education in strategies to decrease PF pressures with coughing, and discuss self care methods for having BM's without valsa maneuver. Education in vulvar/genital care. Educate & train anterior Kegel contraction without use of substitute muscles. Exer: Fig 4 stretches, L hip IR stretch until symmetry is reached. STM of abdomen (and urachus), bladder.
--- NOTE | 2023-04-04 14:13 | PT.OTN ---
Current Diagnoses Mixed incontinence (04/04/23) Physical Therapy Treatment Note PT-OP-A Visit Information Start: 12/29/22 18:05 Freq: Status: Active Protocol: Document 04/04/23 11:18 LRN (Rec: 04/04/23 12:13 LRN [id number]) Out-Patient Physical Therapy Visit Information Visit Information Visit Type Progress Note Visit Start Time 11:17 Visit Stop Time 12:03 Total Visit Minutes 46 Visit Number 4 Evaluation Information Evaluation Date 01/03/23 Precautions Precautions PMH: hypothryroid, osteopenia PT-OP-B Current Condition Start: 12/29/22 18:05 Freq: Status: Active Protocol: Document 01/03/23 08:01 LRN (Rec: 01/03/23 08:52 LRN [id number]) Current Condition History of Current Condition Onset Date 1 yr ago Current Complaints Small amount of leakage randomly. History of Current Condition Pt gets leakage not always when the bladder is full. Not a sense of fullness, it just leaks ~1-2x/month. Involuntary leakage, not related to activity or urge. States she travels alot, but works with diet to keep bowel movements regular. States she has been doing Kegels ex's for decades. PMH: 2-3 Bartholin cysts that had to be drained 4-5 yrs ago. UTI 3 weeks ago that was treated with prescription medication. She has UTI's ~2x/yr. Prior Treatments and Tests None Treatment Goals Patient/Caregiver Goals Pt goals: * to determine if there is a better way to perform Kegels and best HEP using Kegels, * educated in behavior changes she needs to make and * advice on if she should use Estradiol (used 5 yrs ago) because she has been told she has vaginal atrophy. Personal Factors Other Personal Factors That May Effect 2 vaginal births w/o Therapy/Recovery complications but did have stitches and episiotomy, UTI's ~2x/yr, Osteopenia. PT-OP-C Subjective Start: 12/29/22 18:05 Freq: Status: Active Protocol: Document 04/04/23 11:18 LRN (Rec: 04/04/23 12:13 LRN [id number]) OP-PT Subjective Patient Comments Patient Comments Not constipated, but stools are more firm compared to when taking Psyllium. Have not had incontinence, practicing morning and night. Using urge deference technique and doesn 't have to caceres to the bathroom. PT-OP-I Pelvic Floor Start: 12/29/22 18:05 Freq: Status: Active Protocol: Document 02/28/23 11:24 LRN (Rec: 02/28/23 12:19 LR [id number]) Pelvic Floor Assessment Prolapse Urethrocele Grade 2 SEMG (uV) Baseline 1.1 Quick Contraction 25 10 Second Contraction 46 Recruitment Pattern Good Contraction Ability Voluntary Contraction Moderate Voluntary Relaxation Weak Manual Muscle Testing Left 5 Manual Muscle Testing Right 5 Manual Muscle Testing Anterior 5 Manual Muscle Testing Posterior 5 Muscle Endurance (Seconds) 6 Number of Quick Contractions In 10 10 Seconds Comments Pelvic Floor Comments Assessment per Pathway MR-20. Quick Flicks max (5x): in uV' s: 28, 36, 31, 30,32 (avg is 25 uV's). Long Holds (2x): Work (in uV's ): 20-37, 21-32 (avg is 27.5), Rest (in uV's): 2.8, 1.1 (avg is 1.9) Tissue normal and healthy. PT-OP-J Posture/Palpation/Skin Start: 12/29/22 18:05 Freq: Status: Active Protocol: Document 01/03/23 08:01 LRN (Rec: 01/03/23 08:52 [facility] [id number]) Posture Evaluation Position Standing Head/C-Spine Posture Forward Head T-Spine Posture Increased Kyphosis L-Spine Posture Increased Lordosis Shoulder Posture (R) Elevated Scapula Posture (L) Rotated Down,(L) Depressed Arm Posture (L) Internally Rotated,(R) Internally Rotated Pelvis Posture (L) PSIS Posterior,(L) PSIS Inferior,(R) ASIS Inferior Hip Posture (R) Externally Rotated Comments Posture Comments L shoulder & breast low. L innominate in posterior rotation and posterior. PT-OP-K Range of Motion Start: 12/29/22 18:05 Freq: Status: Active Protocol: Document 01/03/23 08:01 LRN (Rec: 01/03/23 08:52 [facility] [id number]) Lumbar Spine Range of Motion Lumbar Spine Active Degrees Testing Position Standing Flexion 110 Extension 15 Rotation Left 45 Rotation Right 40 Lateral Flexion Left 20 Lateral Flexion Right 15 Comments Holds Ext mobility due to spondylolisthesis. Loss of core control with hip Ext MMT. Hip Goniometric Range of Motion Hip Right Passive Testing Position Supine Internal Rotation 45 External Rotation 45 Left Passive Internal Rotation 40 External Rotation 45 PT-OP-M Strength Start: 12/29/22 18:05 Freq: Status: Active Protocol: Document 01/03/23 08:01 LRN (Rec: 01/03/23 08:52 LRN [id number]) Trunk Strength Trunk Manual Muscle Testing Flexion 5 Normal Extension 5 Normal Rotation Left 5 Normal Rotation Right 3 Fair Core Stabilization Lacks core stability with MMT of R hip ext. Hip Strength Hip Manual Muscle Testing Right Comments Strength is 5/5 in all ms groups. Left Comments Strength is 5/5 in all ms groups. PT-OP-Q Treatments Start: 12/29/22 18:05 Freq: Status: Active Protocol: Document 04/04/23 11:18 LRN (Rec: 04/04/23 12:13 LRN [id number]) Therapeutic Exercises Supine Exercises Iliopsoas stretch Supine Exercise Name Iliopsoas stretch with knee flexed. Side bilateral Reps/Minutes 60 SH x 2 each Lateral Hip stretch Supine Exercise Name Lateral Hip stretch Side bilateral Reps/Minutes 60 SH x 1 each Piriformis stretch Supine Exercise Name Piriformis stretch - pt doing as HEP Side bilateral Reps/Minutes 60 SH x 1 Hip ER stretch Supine Exercise Name Fig 4 stretch - added to HEP Side bilateral Reps/Minutes 60 SH x 1 each Comments R tighter than L. Trunk Rot stretch Supine Exercise Name Trunk rot stretch - I/S as HEP Side bilateral Reps/Minutes 10 SH x 10 Comments Extra time to determine max tolerated stretch. Neuro Re-Education Treatment Other Activities PF long hold contractions Details Long Holds w/Vemg Reps/Duration 5' Comments PF contraction holds with EMG feedback. Avg max 24.2 uV's avg Rest 2.0 uV's. Self-Care/Home Management Treatment Education Patient Education Home Exercise Program Activities Self-Care/Home Management Activities Issued & reviewed HEP: Fig 4 stretches, L hip IR stretch ( piriformis and Lateral Hip stretch), Quad stretch in Leo test position stretch. PT-OP-T Assessment and Plan Start: 12/29/22 18:05 Freq: Status: Active Protocol: Document 04/04/23 11:18 LRN (Rec: 04/04/23 12:13 LRN [id number]) Physical Therapy Assessment Rehab Potential Rehabilitation Potential Good Evaluation Complexity Number of Personal Factors/Comorbidities 1-2 Number of Body Systems Impaired 4 or More Clinical Presentation at Evaluation Stable Impairments Impairments Posture,ROM,Soft Tissue Mobility,Strength Other Impairments Urinary leakage. Occasional constipation, Goals Four Impairment Poor body mechanics with transfer and possibly ADLs. Short Term Goal (STG) Pt will be able to transfers sup<>sit with best method to decrease core pressure. 02/28/23: Pt educated and reviewed proper sup<>sit<> stand transfers for proper core pressure management. STG Duration 02/15/23 (02/28/23: MET GOAL) Care Home Goal (LTG) Pt will be able to make behaviour changes to coordinate PF contraction strengthening with transfers and ADLs. 04/04/23: Improved pt awareness that she needs to work on this area of strengthening and transfers. LTG Duration 04/05/23 progressing Three Impairment Decreased Hip mobility Impairment PROM R hip IR is 45 deg's, ER is 45 deg's. PROM L hip IR is 40 deg's, ER is 45 deg's. Short Term Goal (STG) Pt will be educated in self care HEP of hip PROM ex's. 04/04/23: HEP issued: Hip ER, IR, hip flexor/Quad stretches. STG Duration 02/15/23 (04/04/23: MET GOAL ) Care Home Goal (LTG) Pt will demonstrate improved hip mobility for IR of L hip 5 deg's, and marko hip ER improved 5-10 deg's. LTG Duration 04/05/23 Two Impairment Increased PF tone. Short Term Goal (STG) Pt will be educated in proper management of her core pressure with ADLs and transfers. 02/28/23: Educated pt in proper managment of core pressure with transfers and squatting/ lifting. STG Duration 02/15/23 progressed 02/28/23 ( need educ w/ADL handout) Division Service Manager Goal (LTG) Pt will demonstrate per EMG biofeedback a decrease in PF tone. LTG Duration 04/05/23 One Impairment Pt lacks appropriate self care HEP Impairment Hip IR is 45 deg's R, 40 deg's L; Hip ER is 45 deg's bilaterally . Short Term Goal (STG) Improve pt awareness of proper PF contraction for pt education of best way to perform a Kegel 03/07/23: Pt educated in PF contraction in isolation of substitute muscles. STG Duration 02/15/23 progressed 03/07/23 Division Service Manager Goal (LTG) Pt will be able to manage symptoms of random urinary leakage with an independent HEP to include Hip ROM and strengthening as well as appropriate PF ex's. LTG Duration 04/05/23 Assessment Summary Assessment Pt has been progressing well and today states she didn't have urinary leakage lately. She presents with asymmetry of hip mobility with IR and lacks HEP of hip/PF strengthening ex's. She has not yet met goal of pt education in proper management of her core pressure with ADLs. Pt not able to tolerated abdominal stretch into ext due to spondylolesthesis. Per biofeedback, pt is able to contract and hold PF contraction well and is able to relax quickly and maintain fairly stable relaxation. At rest she has a couple small contractions showlng not full relaxation. She appears to be islolating her PF contractions from substitute muscles fairly well. Avg max 24.2 uV's avg Rest 2.0 uV's. The pt would benefit from a couple more weeks of physical therapy for pt education and HEP. Physical Therapy Plan Frequency and Duration Frequency of Treatment 1x/Week Duration of treatment (weeks) 3 Plan of Care Start Date 04/04/23 Plan of Care End Date 04/26/23 Therapeutic Interventions Therapeutic Interventions Home Exercise Program,Joint Mobilizations,Manual Therapy, Neuromuscular Re-education, Self-Care/Home Management,Soft Tissue Mobilization, Therapeutic Exercises Modalities Cold Pack/Ice Massage Next Visit Focus/Plan Next Note Type Treatment Note Next Visit Plan DC expected within 2 visits to HEP if all areas addressed. Review: Fig 4 stretches, LEFT hip IR & Quad/Ilipsoas stretch position. Educate pt in improved posture of ribcage over hips. Education in strategies to decrease PF pressures with coughing, and discuss self care methods for having BM's without valsa maneuver. Education in vulvar/genital care. Educate & train Anterior Kegel contraction without use of substitute muscles. STM of abdomen (and urachus), bladder. POC: PF long hold strengthening, avoid over tightening PF.
--- NOTE | 2023-04-04 14:20 | PT.OTN ---
Current Diagnoses Mixed incontinence (04/04/23) Physical Therapy Treatment Note PT-OP-A Visit Information Start: 12/29/22 18:05 Freq: Status: Active Protocol: Document 04/04/23 11:18 LRN (Rec: 04/04/23 12:13 LRN [id number]) Out-Patient Physical Therapy Visit Information Visit Information Visit Type Progress Note Visit Start Time 11:17 Visit Stop Time 12:03 Total Visit Minutes 46 Visit Number 4 Evaluation Information Evaluation Date 01/03/23 Precautions Precautions PMH: hypothryroid, osteopenia PT-OP-B Current Condition Start: 12/29/22 18:05 Freq: Status: Active Protocol: Document 01/03/23 08:01 LRN (Rec: 01/03/23 08:52 LRN [id number]) Current Condition History of Current Condition Onset Date 1 yr ago Current Complaints Small amount of leakage randomly. History of Current Condition Pt gets leakage not always when the bladder is full. Not a sense of fullness, it just leaks ~1-2x/month. Involuntary leakage, not related to activity or urge. States she travels alot, but works with diet to keep bowel movements regular. States she has been doing Kegels ex's for decades. PMH: 2-3 Bartholin cysts that had to be drained 4-5 yrs ago. UTI 3 weeks ago that was treated with prescription medication. She has UTI's ~2x/yr. Prior Treatments and Tests None Treatment Goals Patient/Caregiver Goals Pt goals: * to determine if there is a better way to perform Kegels and best HEP using Kegels, * educated in behavior changes she needs to make and * advice on if she should use Estradiol (used 5 yrs ago) because she has been told she has vaginal atrophy. Personal Factors Other Personal Factors That May Effect 2 vaginal births w/o Therapy/Recovery complications but did have stitches and episiotomy, UTI's ~2x/yr, Osteopenia. PT-OP-C Subjective Start: 12/29/22 18:05 Freq: Status: Active Protocol: Document 04/04/23 11:18 LRN (Rec: 04/04/23 12:13 LRN [id number]) OP-PT Subjective Patient Comments Patient Comments Not constipated, but stools are more firm compared to when taking Psyllium. Have not had incontinence, practicing morning and night. Using urge deference technique and doesn 't have to caceres to the bathroom. PT-OP-I Pelvic Floor Start: 12/29/22 18:05 Freq: Status: Active Protocol: Document 02/28/23 11:24 LRN (Rec: 02/28/23 12:19 LR [id number]) Pelvic Floor Assessment Prolapse Urethrocele Grade 2 SEMG (uV) Baseline 1.1 Quick Contraction 25 10 Second Contraction 46 Recruitment Pattern Good Contraction Ability Voluntary Contraction Moderate Voluntary Relaxation Weak Manual Muscle Testing Left 5 Manual Muscle Testing Right 5 Manual Muscle Testing Anterior 5 Manual Muscle Testing Posterior 5 Muscle Endurance (Seconds) 6 Number of Quick Contractions In 10 10 Seconds Comments Pelvic Floor Comments Assessment per Pathway MR-20. Quick Flicks max (5x): in uV' s: 28, 36, 31, 30,32 (avg is 25 uV's). Long Holds (2x): Work (in uV's ): 20-37, 21-32 (avg is 27.5), Rest (in uV's): 2.8, 1.1 (avg is 1.9) Tissue normal and healthy. PT-OP-J Posture/Palpation/Skin Start: 12/29/22 18:05 Freq: Status: Active Protocol: Document 01/03/23 08:01 LRN (Rec: 01/03/23 08:52 [facility] [id number]) Posture Evaluation Position Standing Head/C-Spine Posture Forward Head T-Spine Posture Increased Kyphosis L-Spine Posture Increased Lordosis Shoulder Posture (R) Elevated Scapula Posture (L) Rotated Down,(L) Depressed Arm Posture (L) Internally Rotated,(R) Internally Rotated Pelvis Posture (L) PSIS Posterior,(L) PSIS Inferior,(R) ASIS Inferior Hip Posture (R) Externally Rotated Comments Posture Comments L shoulder & breast low. L innominate in posterior rotation and posterior. PT-OP-K Range of Motion Start: 12/29/22 18:05 Freq: Status: Active Protocol: Document 01/03/23 08:01 LRN (Rec: 01/03/23 08:52 [facility] [id number]) Lumbar Spine Range of Motion Lumbar Spine Active Degrees Testing Position Standing Flexion 110 Extension 15 Rotation Left 45 Rotation Right 40 Lateral Flexion Left 20 Lateral Flexion Right 15 Comments Holds Ext mobility due to spondylolisthesis. Loss of core control with hip Ext MMT. Hip Goniometric Range of Motion Hip Right Passive Testing Position Supine Internal Rotation 45 External Rotation 45 Left Passive Internal Rotation 40 External Rotation 45 PT-OP-M Strength Start: 12/29/22 18:05 Freq: Status: Active Protocol: Document 01/03/23 08:01 LRN (Rec: 01/03/23 08:52 LRN [id number]) Trunk Strength Trunk Manual Muscle Testing Flexion 5 Normal Extension 5 Normal Rotation Left 5 Normal Rotation Right 3 Fair Core Stabilization Lacks core stability with MMT of R hip ext. Hip Strength Hip Manual Muscle Testing Right Comments Strength is 5/5 in all ms groups. Left Comments Strength is 5/5 in all ms groups. PT-OP-Q Treatments Start: 12/29/22 18:05 Freq: Status: Active Protocol: Document 04/04/23 11:18 LRN (Rec: 04/04/23 12:13 LRN [id number]) Therapeutic Exercises Supine Exercises Iliopsoas stretch Supine Exercise Name Iliopsoas stretch with knee flexed. Side bilateral Reps/Minutes 60 SH x 2 each Lateral Hip stretch Supine Exercise Name Lateral Hip stretch Side bilateral Reps/Minutes 60 SH x 1 each Piriformis stretch Supine Exercise Name Piriformis stretch - pt doing as HEP Side bilateral Reps/Minutes 60 SH x 1 Hip ER stretch Supine Exercise Name Fig 4 stretch - added to HEP Side bilateral Reps/Minutes 60 SH x 1 each Comments R tighter than L. Trunk Rot stretch Supine Exercise Name Trunk rot stretch - I/S as HEP Side bilateral Reps/Minutes 10 SH x 10 Comments Extra time to determine max tolerated stretch. Neuro Re-Education Treatment Other Activities PF long hold contractions Details Long Holds w/Vemg Reps/Duration 5' Comments PF contraction holds with EMG feedback. Avg max 24.2 uV's avg Rest 2.0 uV's. Self-Care/Home Management Treatment Education Patient Education Home Exercise Program Activities Self-Care/Home Management Activities Issued & reviewed HEP: Fig 4 stretches, L hip IR stretch ( piriformis and Lateral Hip stretch), Quad stretch in Leo test position stretch. PT-OP-T Assessment and Plan Start: 12/29/22 18:05 Freq: Status: Active Protocol: Document 04/04/23 11:18 LRN (Rec: 04/04/23 12:13 LRN [id number]) Physical Therapy Assessment Rehab Potential Rehabilitation Potential Good Evaluation Complexity Number of Personal Factors/Comorbidities 1-2 Number of Body Systems Impaired 4 or More Clinical Presentation at Evaluation Stable Impairments Impairments Posture,ROM,Soft Tissue Mobility,Strength Other Impairments Urinary leakage. Occasional constipation, Goals Four Impairment Poor body mechanics with transfer and possibly ADLs. Short Term Goal (STG) Pt will be able to transfers sup<>sit with best method to decrease core pressure. 02/28/23: Pt educated and reviewed proper sup<>sit<> stand transfers for proper core pressure management. STG Duration 02/15/23 (02/28/23: MET GOAL) Prison Goal (LTG) Pt will be able to make behaviour changes to coordinate PF contraction strengthening with transfers and ADLs. 04/04/23: Improved pt awareness that she needs to work on this area of strengthening and transfers. LTG Duration 04/18/23 progressing Three Impairment Decreased Hip mobility Impairment PROM R hip IR is 45 deg's, ER is 45 deg's. PROM L hip IR is 40 deg's, ER is 45 deg's. Short Term Goal (STG) Pt will be educated in self care HEP of hip PROM ex's. 04/04/23: HEP issued: Hip ER, IR, hip flexor/Quad stretches. STG Duration 02/15/23 (04/04/23: MET GOAL ) Prison Goal (LTG) Pt will demonstrate improved hip mobility for IR of L hip 5 deg's, and marko hip ER improved 5-10 deg's. LTG Duration 04/25/23 Two Impairment Increased PF tone. Short Term Goal (STG) Pt will be educated in proper management of her core pressure with ADLs and transfers. 02/28/23: Educated pt in proper managment of core pressure with transfers and squatting/ lifting. STG Duration 04/18/23 progressed (need educ w/ADL handout) [employer] Database Developer Goal (LTG) Pt will demonstrate per EMG biofeedback a decrease in PF tone. LTG Duration 04/25/23 One Impairment Pt lacks appropriate self care HEP Impairment Hip IR is 45 deg's R, 40 deg's L; Hip ER is 45 deg's bilaterally . Short Term Goal (STG) Improve pt awareness of proper PF contraction for pt education of best way to perform a Kegel 03/07/23: Pt educated in PF contraction in isolation of substitute muscles. STG Duration 04/18/23 progressed 03/07/23 Ms Access Database Developer Goal (LTG) Pt will be able to manage symptoms of random urinary leakage with an independent HEP to include Hip ROM and strengthening as well as appropriate PF ex's. LTG Duration 04/25/23 Assessment Summary Assessment Pt has been progressing well and today states she didn't have urinary leakage lately. She presents with asymmetry of hip mobility with IR and lacks HEP of hip/PF strengthening ex's. She has not yet met goal of pt education in proper management of her core pressure with ADLs. Pt not able to tolerated abdominal stretch into ext due to spondylolesthesis. Per biofeedback, pt is able to contract and hold PF contraction well and is able to relax quickly and maintain fairly stable relaxation. At rest she has a couple small contractions showlng not full relaxation. She appears to be islolating her PF contractions from substitute muscles fairly well. Avg max 24.2 uV's avg Rest 2.0 uV's. The pt would benefit from a couple more weeks of physical therapy for pt education and HEP. Physical Therapy Plan Frequency and Duration Frequency of Treatment 1x/Week Duration of treatment (weeks) 3 Plan of Care Start Date 04/04/23 Plan of Care End Date 04/26/23 Therapeutic Interventions Therapeutic Interventions Home Exercise Program,Joint Mobilizations,Manual Therapy, Neuromuscular Re-education, Self-Care/Home Management,Soft Tissue Mobilization, Therapeutic Exercises Modalities Cold Pack/Ice Massage Next Visit Focus/Plan Next Note Type Treatment Note Next Visit Plan DC expected within 2 visits to HEP if all areas addressed. Review: Fig 4 stretches, LEFT hip IR & Quad/Ilipsoas stretch position. Educate pt in improved posture of ribcage over hips. Education in strategies to decrease PF pressures with coughing, and discuss self care methods for having BM's without valsa maneuver. Education in vulvar/genital care. Educate & train Anterior Kegel contraction without use of substitute muscles. STM of abdomen (and urachus), bladder. POC: PF long hold strengthening, avoid over tightening PF.
--- NOTE | 2023-04-18 12:16 | PT.OTN ---
Current Diagnoses Mixed incontinence (04/18/23) Physical Therapy Treatment Note PT-OP-A Visit Information Start: 12/29/22 18:05 Freq: Status: Active Protocol: Document 04/18/23 11:18 LRN (Rec: 04/18/23 12:15 LRN [id number]) Out-Patient Physical Therapy Visit Information Visit Information Visit Type Treatment Note Visit Start Time 11:18 Visit Stop Time 12:04 Total Visit Minutes 46 Visit Number 5 PT-OP-B Current Condition Start: 12/29/22 18:05 Freq: Status: Active Protocol: Document 01/03/23 08:01 LRN (Rec: 01/03/23 08:52 LRN [id number]) Current Condition History of Current Condition Onset Date 1 yr ago Current Complaints Small amount of leakage randomly. History of Current Condition Pt gets leakage not always when the bladder is full. Not a sense of fullness, it just leaks ~1-2x/month. Involuntary leakage, not related to activity or urge. States she travels alot, but works with diet to keep bowel movements regular. States she has been doing Kegels ex's for decades. PMH: 2-3 Bartholin cysts that had to be drained 4-5 yrs ago. UTI 3 weeks ago that was treated with prescription medication. She has UTI's ~2x/yr. Prior Treatments and Tests None Treatment Goals Patient/Caregiver Goals Pt goals: * to determine if there is a better way to perform Kegels and best HEP using Kegels, * educated in behavior changes she needs to make and * advice on if she should use Estradiol (used 5 yrs ago) because she has been told she has vaginal atrophy. Personal Factors Other Personal Factors That May Effect 2 vaginal births w/o Therapy/Recovery complications but did have stitches and episiotomy, UTI's ~2x/yr, Osteopenia. PT-OP-C Subjective Start: 12/29/22 18:05 Freq: Status: Active Protocol: Document 04/18/23 11:18 LRN (Rec: 04/18/23 12:15 LRN [id number]) OP-PT Subjective Patient Comments Patient Comments Had one slight small leakage on vacation. Had a large coffee and had extra long walk . PT-OP-I Pelvic Floor Start: 12/29/22 18:05 Freq: Status: Active Protocol: Document 04/18/23 11:18 LRN (Rec: 04/18/23 12:15 [facility] [id number]) Pelvic Floor Assessment SEMG (uV) Baseline 0.6 Quick Contraction 23.4 10 Second Contraction 24.5 Recruitment Pattern Good Relaxation Good Holding Good Stability of Hold Good SEMG Stability of Rest Fair Comments Pelvic Floor Comments Assessment per Pathway MR-20. Quick Flicks max (10x): Rest is 5.8 uV's; (20x) Work Max is 22.2 uV's Rest is 7.0 uV's. Long Holds (10x): Rest is 4.6 uV's; (20x) Work Max (in uV's) is 24.5 uV's, Avg Rest is 4.6 uV's. Initial Long Holds: 2 contractions (in uV's): Avg Work 27.5, Avg Rest 1.9 Tissue normal and healthy. PT-OP-J Posture/Palpation/Skin Start: 12/29/22 18:05 Freq: Status: Active Protocol: Document 01/03/23 08:01 LRN (Rec: 01/03/23 08:52 [facility] [id number]) Posture Evaluation Position Standing Head/C-Spine Posture Forward Head T-Spine Posture Increased Kyphosis L-Spine Posture Increased Lordosis Shoulder Posture (R) Elevated Scapula Posture (L) Rotated Down,(L) Depressed Arm Posture (L) Internally Rotated,(R) Internally Rotated Pelvis Posture (L) PSIS Posterior,(L) PSIS Inferior,(R) ASIS Inferior Hip Posture (R) Externally Rotated Comments Posture Comments L shoulder & breast low. L innominate in posterior rotation and posterior. PT-OP-K Range of Motion Start: 12/29/22 18:05 Freq: Status: Active Protocol: Document 01/03/23 08:01 LRN (Rec: 01/03/23 08:52 [facility] [id number]) Lumbar Spine Range of Motion Lumbar Spine Active Degrees Testing Position Standing Flexion 110 Extension 15 Rotation Left 45 Rotation Right 40 Lateral Flexion Left 20 Lateral Flexion Right 15 Comments Holds Ext mobility due to spondylolisthesis. Loss of core control with hip Ext MMT. Hip Goniometric Range of Motion Hip Right Passive Testing Position Supine Internal Rotation 45 External Rotation 45 Left Passive Internal Rotation 40 External Rotation 45 PT-OP-M Strength Start: 12/29/22 18:05 Freq: Status: Active Protocol: Document 01/03/23 08:01 LRN (Rec: 01/03/23 08:52 LRN [id number]) Trunk Strength Trunk Manual Muscle Testing Flexion 5 Normal Extension 5 Normal Rotation Left 5 Normal Rotation Right 3 Fair Core Stabilization Lacks core stability with MMT of R hip ext. Hip Strength Hip Manual Muscle Testing Right Comments Strength is 5/5 in all ms groups. Left Comments Strength is 5/5 in all ms groups. PT-OP-Q Treatments Start: 12/29/22 18:05 Freq: Status: Active Protocol: Document 04/18/23 11:18 LRN (Rec: 04/18/23 12:15 LRN [id number]) Therapeutic Exercises Supine Exercises PF Resting Tone Supine Exercise Name Relaxation PF w/Vemg. Reps/Minutes 2' Comments PF resting tone taken Iliopsoas stretch Supine Exercise Name Iliopsoas stretch with knee flexed. Side bilateral Reps/Minutes 60 SH x 2 each Lateral Hip stretch Supine Exercise Name Lateral Hip stretch Side bilateral Reps/Minutes 60 SH x 1 each Piriformis stretch Supine Exercise Name Piriformis stretch - pt doing as HEP Side bilateral Reps/Minutes 60 SH x 1 Hip ER stretch Supine Exercise Name Fig 4 stretch - HEP Side bilateral Reps/Minutes 60 SH x 1 each Comments R tighter than L. Long Holds Supine Exercise Name Long Holds w/Vemg Reps/Minutes 20x Comments See PF contraction ability above Quick Flicks Supine Exercise Name Quick flicks w/Vemg Reps/Minutes 20x Comments See PF contraction ability above Self-Care/Home Management Treatment Activities Self-Care/Home Management Activities Issued handout for vulvar/ genital care. PT-OP-T Assessment and Plan Start: 12/29/22 18:05 Freq: Status: Active Protocol: Document 04/18/23 11:18 LRN (Rec: 04/18/23 12:15 LRN [id number]) Physical Therapy Assessment Goals Four Impairment Poor body mechanics with transfer and possibly ADLs. Short Term Goal (STG) Pt will be able to transfers sup<>sit with best method to decrease core pressure. 02/28/23: Pt educated and reviewed proper sup<>sit<> stand transfers for proper core pressure management. STG Duration 02/15/23 (02/28/23: MET GOAL) Care Home Goal (LTG) Pt will be able to make behaviour changes to coordinate PF contraction strengthening with transfers and ADLs. 04/04/23: Improved pt awareness that she needs to work on this area of strengthening and transfers. 04/18/23: Pt reports not being consistent with behaviour changes of PF/breath coordination and was not doing proper breathwork with exertion of activities, only with transfers. Pt now reporting greater awareness of what she needs to be doing. LTG Duration 04/18/23 progressing Three Impairment Decreased Hip mobility Impairment PROM R hip IR is 45 deg's, ER is 45 deg's. PROM L hip IR is 40 deg's, ER is 45 deg's. Short Term Goal (STG) Pt will be educated in self care HEP of hip PROM ex's. 04/04/23: HEP issued: Hip ER, IR, hip flexor/Quad stretches. STG Duration 02/15/23 (04/04/23: MET GOAL ) Care Home Goal (LTG) Pt will demonstrate improved hip mobility for IR of L hip 5 deg's, and marko hip ER improved 5-10 deg's. 04/18/23: Hip IR: 45 deg's L, 40 deg's R; ER is 40 deg's L, 50 deg's R. LTG Duration 04/25/23 (04/18/23: MET GOAL) Two Impairment Increased PF tone. Short Term Goal (STG) Pt will be educated in proper management of her core pressure with ADLs and transfers. 02/28/23: Educated pt in proper managment of core pressure with transfers and squatting/ lifting. STG Duration 04/18/23 progressed (need educ w/ADL handout) Care Home Goal (LTG) Pt will demonstrate per EMG biofeedback a decrease in PF tone. 04/18/23: PF resting tone is 0 .6 uV's (initially was 1.1 uVs ) LTG Duration 04/25/23 (04/18/23: MET GOAL) One Impairment Pt lacks appropriate self care HEP Impairment Hip IR is 45 deg's R, 40 deg's L; Hip ER is 45 deg's bilaterally . Short Term Goal (STG) Improve pt awareness of proper PF contraction for pt education of best way to perform a Kegel 03/07/23: Pt educated in PF contraction in isolation of substitute muscles. 04/18/23: Pt feels she has improved her knowledge of how to perform a Kegel. STG Duration 04/18/23 progressed 03/07/23 Principal Consulting Engineer Goal (LTG) Pt will be able to manage symptoms of random urinary leakage with an independent HEP to include Hip ROM and strengthening as well as appropriate PF ex's. LTG Duration 04/25/23 Assessment Summary Assessment Pt performing proper Fig 4 and hip IR & Quad/Ilipsoas stretch. Pt shows improved hip mobility (goal # 3 MET). Her PF resting tone has decreased. Her PF contractions show good holding and good stability of hold. PF recruitment pattern is good . She tends not to relax PF after ~15 reps of PF contractions; therefore pt is aware and will work on PF relaxation after contractions. Pt wanting further education and training for one last visit. Physical Therapy Plan Frequency and Duration Frequency of Treatment 1x/Week Duration of treatment (weeks) 3 Plan of Care Start Date 04/04/23 Plan of Care End Date 04/26/23 Next Visit Focus/Plan Next Note Type Discharge Summary Next Visit Plan DC next visit to HEP. Assess for questions regarding vulvar /genital care & for behaviour changes to coordinate PF contraction strengthening with transfers and ADLs (LTG #4). Educate pt in improved posture of ribcage over hips. Education in strategies to decrease PF pressures with coughing, and discuss self care methods for having BM's without valsa maneuver. Educate & train Anterior Kegel contraction without use of substitute muscles. ?STM of abdomen (and urachus), bladder. POC: PF long hold strengthening, avoid over tightening PF.
--- NOTE | 2023-04-25 16:33 | PT.OTN ---
Current Diagnoses Mixed incontinence (04/25/23) Physical Therapy Treatment Note PT-OP-A Visit Information Start: 12/29/22 18:05 Freq: Status: Active Protocol: Document 04/25/23 14:05 LRN (Rec: 04/25/23 15:02 LRN [id number]) Out-Patient Physical Therapy Visit Information Visit Information Visit Type Treatment Note Visit Start Time 14:05 Visit Stop Time 14:48 Total Visit Minutes 43 Visit Number 6 Evaluation Information Evaluation Date 01/03/23 Precautions Precautions PMH: hypothryroid, osteopenia PT-OP-B Current Condition Start: 12/29/22 18:05 Freq: Status: Active Protocol: Document 01/03/23 08:01 LRN (Rec: 01/03/23 08:52 LRN [id number]) Current Condition History of Current Condition Onset Date 1 yr ago Current Complaints Small amount of leakage randomly. History of Current Condition Pt gets leakage not always when the bladder is full. Not a sense of fullness, it just leaks ~1-2x/month. Involuntary leakage, not related to activity or urge. States she travels alot, but works with diet to keep bowel movements regular. States she has been doing Kegels ex's for decades. PMH: 2-3 Bartholin cysts that had to be drained 4-5 yrs ago. UTI 3 weeks ago that was treated with prescription medication. She has UTI's ~2x/yr. Prior Treatments and Tests None Treatment Goals Patient/Caregiver Goals Pt goals: * to determine if there is a better way to perform Kegels and best HEP using Kegels, * educated in behavior changes she needs to make and * advice on if she should use Estradiol (used 5 yrs ago) because she has been told she has vaginal atrophy. Personal Factors Other Personal Factors That May Effect 2 vaginal births w/o Therapy/Recovery complications but did have stitches and episiotomy, UTI's ~2x/yr, Osteopenia. PT-OP-C Subjective Start: 12/29/22 18:05 Freq: Status: Active Protocol: Document 04/25/23 14:05 LRN (Rec: 04/25/23 15:02 LRN [id number]) OP-PT Subjective Patient Comments Patient Comments Same. Ready for discharge. Patient Questionnaires Pelvic Pain and Urgency/Frequency Patient Symptom Scale Pelvic Pain Score 1 PT-OP-I Pelvic Floor Start: 12/29/22 18:05 Freq: Status: Active Protocol: Document 04/18/23 11:18 LRN (Rec: 04/18/23 12:15 LRN [id number]) Pelvic Floor Assessment SEMG (uV) Baseline 0.6 Quick Contraction 23.4 10 Second Contraction 24.5 Recruitment Pattern Good Relaxation Good Holding Good Stability of Hold Good SEMG Stability of Rest Fair Comments Pelvic Floor Comments Assessment per Pathway MR-20. Quick Flicks max (10x): Rest is 5.8 uV's; (20x) Work Max is 22.2 uV's Rest is 7.0 uV's. Long Holds (10x): Rest is 4.6 uV's; (20x) Work Max (in uV's) is 24.5 uV's, Avg Rest is 4.6 uV's. Initial Long Holds: 2 contractions (in uV's): Avg Work 27.5, Avg Rest 1.9 Tissue normal and healthy. PT-OP-J Posture/Palpation/Skin Start: 12/29/22 18:05 Freq: Status: Active Protocol: Document 01/03/23 08:01 LRN (Rec: 01/03/23 08:52 LR [id number]) Posture Evaluation Position Standing Head/C-Spine Posture Forward Head T-Spine Posture Increased Kyphosis L-Spine Posture Increased Lordosis Shoulder Posture (R) Elevated Scapula Posture (L) Rotated Down,(L) Depressed Arm Posture (L) Internally Rotated,(R) Internally Rotated Pelvis Posture (L) PSIS Posterior,(L) PSIS Inferior,(R) ASIS Inferior Hip Posture (R) Externally Rotated Comments Posture Comments L shoulder & breast low. L innominate in posterior rotation and posterior. PT-OP-K Range of Motion Start: 12/29/22 18:05 Freq: Status: Active Protocol: Document 01/03/23 08:01 LRN (Rec: 01/03/23 08:52 [facility] [id number]) Lumbar Spine Range of Motion Lumbar Spine Active Degrees Testing Position Standing Flexion 110 Extension 15 Rotation Left 45 Rotation Right 40 Lateral Flexion Left 20 Lateral Flexion Right 15 Comments Holds Ext mobility due to spondylolisthesis. Loss of core control with hip Ext MMT. Hip Goniometric Range of Motion Hip Right Passive Testing Position Supine Internal Rotation 45 External Rotation 45 Left Passive Internal Rotation 40 External Rotation 45 PT-OP-M Strength Start: 12/29/22 18:05 Freq: Status: Active Protocol: Document 01/03/23 08:01 LRN (Rec: 01/03/23 08:52 LRN [id number]) Trunk Strength Trunk Manual Muscle Testing Flexion 5 Normal Extension 5 Normal Rotation Left 5 Normal Rotation Right 3 Fair Core Stabilization Lacks core stability with MMT of R hip ext. Hip Strength Hip Manual Muscle Testing Right Comments Strength is 5/5 in all ms groups. Left Comments Strength is 5/5 in all ms groups. PT-OP-Q Treatments Start: 12/29/22 18:05 Freq: Status: Active Protocol: Document 04/25/23 14:05 LRN (Rec: 04/25/23 15:02 LRN [id number]) Therapeutic Exercises Sitting Exercises LE roll in-out w/PF/TBand/Ball Sitting Exercise Name LE Roll in-out w/PF/TB/Ball Side bilateral Standing Exercises Plie Standing Exercise Name Plie w/PF/breathing/PPT Reps/Minutes 10' Comments Extra time for cuing of posture and breath. Iliopsoas doorway stretch Standing Exercise Name Ilipsoas doorway stretch Side bilateral Reps/Minutes 60 SH x 2 Comments Extra time for positioning, vcuing for PPT, knee straight as tolerated. Iliopsoas stretch Standing Exercise Name Runner's stretch positioning Side bilateral Reps/Minutes 60 SH x 2 Comments Extra time for positioning, vcuing for PPT, knee straight as tolerated. Other Exercises Sup<>Sit<>Stand/PF/breathing Other Exercise Name Stand<>sit<>sup with breath/PF contraction - review. Side bilateral Reps/Minutes 1x except sit<> x 3 Comments Extra time for training, cuing for breath. Self-Care/Home Management Treatment Education Patient Education Body Mechanics,Home Exercise Program,Posture Other Education Educated pt in doing PF contraction with movement in any direction and the importance of proper breathing with exercise and functional activities. Pt educated in log roll transfers and sit<>stand transfers to minimize core pressure and proper body mechanics for lifting and moving for ADLs. Educated pt in coordinating breathing and PF contractions/ strengthening with transfers and ADLs. Pt educated in improved posture in standing of ribcage over hips and PPT of pelvis to minimize lumbar lordosis. Activities Self-Care/Home Management Activities Issued & reviewed HEP: Standing Ilipsoas stretch ( runner's stretch position) w/ written I/S for doorway Iliopsoas stretch; Sitting LE Roll in-out and standing Plie 's with PF tightening and coordination of breathwork. PT-OP-T Assessment and Plan Start: 12/29/22 18:05 Freq: Status: Active Protocol: Document 04/25/23 14:05 LRN (Rec: 04/25/23 15:02 LRN [id number]) Physical Therapy Assessment Goals Four Impairment Poor body mechanics with transfer and possibly ADLs. Short Term Goal (STG) Pt will be able to transfers sup<>sit with best method to decrease core pressure. 02/28/23: Pt educated and reviewed proper sup<>sit<> stand transfers for proper core pressure management. STG Duration 02/15/23 (02/28/23: MET GOAL) Diesel Engine Specialist Goal (LTG) Pt will be able to make behaviour changes to coordinate PF contraction strengthening with transfers and ADLs. 04/04/23: Improved pt awareness that she needs to work on this area of strengthening and transfers. 04/18/23: Pt reports not being consistent with behaviour changes of PF/breath coordination and was not doing proper breathwork with exertion of activities, only with transfers. Pt now reporting greater awareness of what she needs to be doing. 04/25/23: Educated pt in coordinating PF contraction strengthening with transfers and ADLs. LTG Duration 04/18/23 (04/25/23: MET GOAL) Three Impairment Decreased Hip mobility Impairment PROM R hip IR is 45 deg's, ER is 45 deg's. PROM L hip IR is 40 deg's, ER is 45 deg's. Short Term Goal (STG) Pt will be educated in self care HEP of hip PROM ex's. 04/04/23: HEP issued: Hip ER, IR, hip flexor/Quad stretches. STG Duration 02/15/23 (04/04/23: MET GOAL ) [facility] Goal (LTG) Pt will demonstrate improved hip mobility for IR of L hip 5 deg's, and marko hip ER improved 5-10 deg's. 04/18/23: Hip IR: 45 deg's L, 40 deg's R; ER is 40 deg's L, 50 deg's R. LTG Duration 04/25/23 (04/18/23: MET GOAL) Two Impairment Increased PF tone. Short Term Goal (STG) Pt will be educated in proper management of her core pressure with ADLs and transfers. 02/28/23: Educated pt in proper managment of core pressure with transfers and squatting/ lifting. 04/25/23: Pt educated/reviewed concept of core pressure management and coordination with ADLs & transfers. STG Duration 04/18/23 (04/25/23: MET GOAL) [facility] Goal (LTG) Pt will demonstrate per EMG biofeedback a decrease in PF tone. 04/18/23: PF resting tone is 0 .6 uV's (initially was 1.1 uVs ) LTG Duration 04/25/23 (04/18/23: MET GOAL) One Impairment Pt lacks appropriate self care HEP Impairment Hip IR is 45 deg's R, 40 deg's L; Hip ER is 45 deg's bilaterally . Short Term Goal (STG) Improve pt awareness of proper PF contraction for pt education of best way to perform a Kegel 03/07/23: Pt educated in PF contraction in isolation of substitute muscles. 04/18/23: Pt feels she has improved her knowledge of how to perform a Kegel. STG Duration 04/18/23 (04/18/23: MET GOAL) [facility] Goal (LTG) Pt will be able to manage symptoms of random urinary leakage with an independent HEP to include Hip ROM and strengthening as well as appropriate PF ex's. 04/25/23: HEP: Sitting and standing (plie): LE roll in/ out w/PF/Ball Squeeze & TBand. Pt has Kegel exercises w/ handout and hip stretchs. LTG Duration 04/25/23 (04/25/23: MET GOAL) Assessment Summary Assessment The pt has done very well with physical therapy and recently has been able to remain continent from urinary leakage except for one time where she was aware of what she had done; therefore was not too surprised she leaked. She has improved per PUF score of 7 initially to 1 today, indicating pt is not bothered by her condition and has very minimal symptoms. The pt had no questions regarding genital /vulvar care, and I was able to answer all pt's questions regarding home exercises and & to coordination of PF strengthening with transfers and ADLs. The pt appears to have a good understanding of her issued HEP. She has met all her goals and is ready to be discharged to her HEP. Physical Therapy Plan Discharge Physical Therapy Discharge Reasons Goals Met Discharge Comments Thank you for your referral.
== END 2023-04-30 15:08 | disposition home or self-care (01) ==
LOC: PHYS 14:00
PROVIDERS: Family Provider Registered Nurse; PCP Registered Nurse; Referring Provider Registered Nurse; Visit Provider Registered Nurse
DX: N39.46 Mixed incontinence (principal)
CPT/HCPCS: 97110; 97161; 97535